=== PATIENT | female | born 1965 | race Caucasian/White ===

== ENCOUNTER 2024-07-10 17:52 | Emergency (ER) | payer BC ==
[~2024-07-10] VITALS: Ht 177.8 cm; Wt 130.5 kg
[~2024-07-10 17:52] MED LIST: DESV50TA PO; ESZO3TAB30 PO; LEVO175T52 PO; LORA0.5T PO; METH27TA7 PO; NORCO10T PO; TOP25T PO; ZOF4T PO
[2024-07-10 17:56] VITALS: BP 175/96; PULSE 95; RESP 16; O2SAT 96
[2024-07-10 18:40] VITALS: TEMP 97.9
== END 2024-07-10 18:41 | disposition home or self-care (01) ==
LOC: ER 17:53
DX: S93.401A Sprain of unspecified ligament of right ankle, initial encounter (principal); F32.A Depression, unspecified; Z88.0 Allergy status to penicillin; Z88.5 Allergy status to narcotic agent; Z90.710 Acquired absence of both cervix and uterus; Z86.73 Personal history of transient ischemic attack (TIA), and cerebral infarction without residual deficits; X50.1XXA Overexertion from prolonged static or awkward postures, initial encounter; Y93.01 Activity, walking, marching and hiking; Y92.89 Other specified places as the place of occurrence of the external cause; Y99.8 Other external cause status
CPT/HCPCS: 73610; 73630; 99284; L4360